=== PATIENT | female | born 1945 | race Caucasian/White ===

== ENCOUNTER → 2018-07-17 | Outpatient (CLI) | payer MEDICARE ==
[~2018-07-17] MED LIST: LORA10TA56 PO; ROSU10TA12 PO
== END | disposition home or self-care (01) ==
LOC: PREOP 06:23
PROVIDERS: ATTEND Specialist
DX: Z01.818 Encounter for other preprocedural examination (principal)

== ENCOUNTER 2018-07-24 11:30 | Outpatient (CLI) | payer MEDICARE ==
[~2018-07-24] VITALS: Ht 157.5 cm; Wt 71.7 kg
[~2018-07-24 11:30] MED LIST changes: +ATOR40TA70 PO; +FEXO-46 PO
== END 2018-07-24 12:13 ==
LOC: PREOP 11:30
PROVIDERS: ATTEND Specialist
DX: Z01.818 Encounter for other preprocedural examination (principal)

== ENCOUNTER 2018-07-26 07:31 | Day surgery (SDC) | payer MEDICARE ==
[~2018-07-26] VITALS: Ht 157.5 cm; Wt 71.7 kg
[2018-07-26 07:57] VITALS: BP 146/87
[2018-07-26] MEDS: TETRACAINE 0.5% OPHTH SOLN 4 ML BTL (SINGLE DOSE ONLY) OU PRN ×4 (08:00→08:17)
[2018-07-26] MEDS: PHENYLEPHRINE 10% OPHTH (NEO-SYN) 5 ML BTL OU PRN ×3 (08:04→08:17)
[2018-07-26] MEDS: TROPICAMIDE 1% OPH SOLN (MYDRIACYL) 15 ML BTL OU PRN ×3 (08:04→08:18)
--- NOTE | 2018-07-26 09:02 | Ophthalmology Operative Report ---
YAG Capsulotomy PREOPERATIVE DIAGNOSIS: Secondary Cataract Left Eye POSTOPERATIVE DIAGNOSIS: Secondary Cataract Left Eye PROCEDURE: YAG Capsulotomy, left eye SURGEON: Jean Paul Valente ANESTHESIA: Topical anesthesia COMPLICATIONS: None ESTIMATED BLOOD LOSS: Minimal DESCRIPTION OF PROCEDURE: After proper informed consent was obtained, the patient's, a 73 female left eye received one drop of Tropicamide and one drop of Tetracaine. The patient was then placed at the YAG laser and using a power of [ 6.0] millijoules and [ 21] bursts were used to fashion a central capsulotomy. The patient tolerated the procedure well without complications and the patient's pressure was [21 ] shortly after the laser. JEAN PAUL VALENTE MD July 26, 2018 09:02
--- NOTE | 2018-07-26 09:03 | Ophthalmologist Pre-Op Note ---
Pre-Operative Progress Note H&P Reviewed The H&P was reviewed, patient examined and no changes noted. Date H&P Reviewed: July 26, 2018 Time H&P Reviewed: 08:55 Pre-Op Dx Secondary Cataract, Left Eye VENKATESH VALENTE MD July 26, 2018 09:03
[2018-07-26 09:05] VITALS: BP 146/87
== END 2018-07-26 09:05 | disposition home or self-care (01) ==
LOC: SDC 07:31
PROVIDERS: ATTEND Specialist
DX: H26.492 Other secondary cataract, left eye (principal); I10 Essential (primary) hypertension; E78.00 Pure hypercholesterolemia, unspecified; J44.9 Chronic obstructive pulmonary disease, unspecified; G47.00 Insomnia, unspecified; F41.9 Anxiety disorder, unspecified; F32.9 Major depressive disorder, single episode, unspecified; Z72.0 Tobacco use; Z79.899 Other long term (current) drug therapy

== ENCOUNTER → 2019-01-31 | Outpatient (CLI) | payer MEDICARE ==
--- NOTE | 2019-01-31 10:46 | Diagnostic Imaging Report ---
EXAMINATION: CT low-dose lung cancer screening. INDICATION: 120-pack- year smoking history. TECHNIQUE: Routine images of the thorax were obtained using CT low-dose lung cancer screening protocol. COMPARISON: There are no prior studies available for comparison. FINDINGS: Adjacent to the left heart border, there is a 5.9 x 11.5 mm partially calcified soft tissue density. I suspect that this is a benign process as there are several other calcified granulomas in both lungs. However, given the size of the associated soft tissue density in this area, I would suggest that a short-term (three-month) follow-up CT chest exam be performed for further study. No other parenchymal abnormality is identified. There are mild emphysematous changes involving both lungs. There is no sign of failure, pneumonia, or pleural effusion. The heart size is within normal limits. There are extensive coronary artery calcifications evident. The aorta is not abnormally dilated. There is no obvious mediastinal or hilar adenopathy. The thyroid gland was not well visualized. The breast were not well imaged either. There is no obvious breast mass. The sections through the upper abdomen fail to show any sign of an acute abnormality. The bone windows do show dextroscoliosis of the mid thoracic spine. There is also fairly severe degenerative disc and bony disease in this area. There is no acute bony abnormality evident. IMPRESSION: 1. The partially calcified nodular density adjacent to the left heart border is most likely a benign process. Recommendations as above. 2. There is no other parenchymal abnormality to suggest malignancy. 3. There are emphysematous changes involving both lungs, but there is no sign of an acute abnormality. 4. There is coronary artery disease. 5. There is dextroscoliosis of the mid thoracic spine. LUNG-RADS CATEGORY: 4-A. Dictated by: Dictated on workstation # [id number]
== END ==
LOC: RAD 09:34
PROVIDERS: ATTEND Family Medicine
DX: Z12.2 Encounter for screening for malignant neoplasm of respiratory organs (principal); J43.9 Emphysema, unspecified; I25.10 Atherosclerotic heart disease of native coronary artery without angina pectoris; M41.84 Other forms of scoliosis, thoracic region; Z87.891 Personal history of nicotine dependence

== ENCOUNTER 2019-03-20 12:45 | Outpatient (CLI) | payer MEDICARE ==
[~2019-03-20] VITALS: Ht 154.9 cm; Wt 72.7 kg
== END 2019-03-20 13:21 | disposition home or self-care (01) ==
LOC: PREOP 12:45
PROVIDERS: ATTEND Surgery
DX: Z01.818 Encounter for other preprocedural examination (principal)

== ENCOUNTER → 2019-04-18 | Outpatient (CLI) | payer MEDICARE ==
--- NOTE | 2019-04-18 10:52 | Diagnostic Imaging Report ---
PROCEDURE: US Abdomen, limited. TECHNIQUE: Multiple realtime grayscale images were obtained over the abdomen in various projections. INDICATION: Abnormal CT exam. FINDINGS: There are no prior ultrasound examinations available for comparison. Reportedly, the patient had a CT examination on 01/31/2019 which indicated an abnormality involving the abdominal wall. Neither that study nor the report from that exam is available at this time. There was a CT low-dose lung cancer screening exam performed on the same date but that study made no mention of an abnormality involving the abdomen. On this study, there is a 4.2 x 1.4 x 3.5 cm hypoechoic area extending through the anterior abdominal wall into the subcutaneous fat. This area lies approximately 12-15 cm cephalad to the umbilicus. I suspect that this is related to herniation of the mesenteric fat through the anterior abdominal wall. There is no peristalsis in this area to suggest that there is a segment of bowel in this area. If the previous CT exam is available, it would be helpful for comparison. No other abnormality is identified. IMPRESSION: 1. There is a 4.2 x 1.4 x 3.5 cm hernia extending through the anterior abdominal wall into the subcutaneous fat just cephalad to the umbilicus. There is no sign of incarceration or obstruction of the bowel in this area. 2. If the previous CT exam is available for comparison, it would be helpful. Dictated by: Dictated on workstation # [id number]
== END ==
LOC: RAD 09:17
PROVIDERS: ATTEND Surgery
DX: K43.9 Ventral hernia without obstruction or gangrene (principal)
CPT/HCPCS: 76705

== ENCOUNTER → 2019-04-30 | Outpatient (CLI) | payer MEDICARE ==
[~2019-04-30] VITALS: Ht 155 cm; Wt 71.0 kg
[~2019-04-30] MED LIST changes: +CATHETER FLUSH 10 ML SYR IV PRN; +REGADENOSON 0.4 MG/5 ML SYR (LEXISCAN) IV ONE
[2019-04-30 09:16] VITALS: BP 163/91
--- NOTE | 2019-04-30 17:56 | STRESS TEST ---
DATE OF SERVICE: 04/30/2019 LEXISCAN MYOVIEW STRESS TEST REFERRING PHYSICIAN: Suni Hua MD. SUMMARY: The patient was injected with mCi of technetium-99 Myoview and the resting images were obtained. Then, the patient received 0.4 mg of Lexiscan followed by 30.7 mCi of technetium-99 Myoview and the stress images were acquired. The resting and stress images were reviewed and compared in the short axis, horizontal long axis, and vertical long axis views. Review of the images showed good radiotracer uptake with no significant ischemia or infarction. SSS is 2, SDS 1, TID value 1.08. On the gated images, the left ventricle appeared to be normal size with normal contractility. Calculated ejection fraction is 54%. CONCLUSION: 1. The patient tolerated Lexiscan well. 2. Breast attenuation with no significant ischemia or infarction on SPECT images. 3. Normal left ventricular size and contractility, calculated ejection fraction 54%. Job ID: [id number] DocumentID: [id number] Dictated Date: 04/30/2019 15:31:18 Melter Clerk Date: 04/30/2019 17:56:22 Dictated By: ARIK DELEON MD
== END ==
LOC: CARD 07:40
PROVIDERS: ATTEND Internal Medicine Cardiovascular Disease
DX: I25.10 Atherosclerotic heart disease of native coronary artery without angina pectoris (principal); E78.2 Mixed hyperlipidemia; I10 Essential (primary) hypertension; Z72.0 Tobacco use
CPT/HCPCS: 78452; 93017

== ENCOUNTER 2019-08-15 09:21 | Outpatient (RCR) | payer MEDICARE ==
[~2019-08-15] VITALS: Ht 155 cm; Wt 75.0 kg
[~2019-08-15 09:21] MED LIST changes: +ASPI-586 PO; -CATHETER FLUSH 10 ML SYR IV PRN; -REGADENOSON 0.4 MG/5 ML SYR (LEXISCAN) IV ONE
[2019-08-21] MEDS ORDERED: HYDR-4226 PO (10:41)
[2019-08-21] MEDS ORDERED: DOCU-143 PO (10:41)
== END 2019-08-15 14:51 | disposition home or self-care (01) ==
LOC: PREOP 09:21
PROVIDERS: ATTEND Surgery
DX: Z01.818 Encounter for other preprocedural examination (principal); Z01.812 Encounter for preprocedural laboratory examination; Z11.59 Encounter for screening for other viral diseases; K43.9 Ventral hernia without obstruction or gangrene
CPT/HCPCS: 87635

== ENCOUNTER 2019-08-21 08:31 | Day surgery (SDC) | payer MEDICARE ==
[~2019-08-21] VITALS: Ht 155 cm; Wt 75.0 kg
[2019-08-21] VITALS (15 sets, daily range): BP systolic 119–149; BP diastolic 65–88
--- OUTSIDE RECORDS SUMMARY | 2019-08-21 08:39 | XMS REPORT | Continuity of Care Document ---
Author Organization Unknown Address Unknown Phone Unavailable Allergies Active Description Code Type Severity Reaction Onset Reported/Identified Relationship to Patient Clinical Status Yes IVP DYES MODERATE MODERATE Yes IVP DYES MODERATE OTHER Yes PCN MODERATE DERMATOLOGICAL - HIV Yes PCN MODERATE MODERATE Yes iodine [id number] Drug Allergy Severe CODE BLUE 10/09/2009 Yes Penicillins [id number] Drug Aller gy Mild HIVES 10/09/2009 Medications There is no data. Problems Date Dx Coded Attending Type Code Diagnosis Diagnosed By 02/22/1450 JULES SOTO DO Ot K43. 9 VENTRAL HERNIA WITHOUT OBSTRUCTION OR GA 02/22/1450 JULES SOTO DO Ot Z01.812 ENCOUNTER FOR PREPROCEDURAL LABORATORY E 02/22/1450 JULES SOTO DO Ot Z01.818 ENCOUNTER FOR OTHER PREPROCEDURAL EXAMIN 02/22/1450 JULES SOTO DO Ot Z11. 59 ENCOUNTER FOR SCREENING FOR OTHER VIRAL 06/15/2017 Suni Alves W 787.91 DIARRHEA 06/15/2017 Suni Alves W 789.00 ABDOMINAL PAIN, UNSPECIFIED SITE 06/15/2017 Suni Alves W R10.9 UNSPECIFIED ABDOMINAL PAIN 06/15/2017 Suni Alves W R19.7 DIARRHEA, UNSPECIFIED 06/15/2017 W 787.91 RONDA RRHEA 06/15/2017 W 789.00 ABD OMINAL PAIN, UNSPECIFIED SITE 06/15/2017 W R10.9 UNSP ECIFIED ABDOMINAL PAIN 06/15/2017 W R19.7 DIAR DOMI, UNSPECIFIED 06/15/2017 Suni Alves W 787.91 DIARRHEA 06/15/2017 Suni Alves W 789.00 ABDOMINAL PAIN, UNSPECIFIED SITE 06/15/2017 Suni Alves W R10.9 UNSPECIFIED ABDOMINAL PAIN 06/15/2017 Long, Suni W R19.7 DIARRHEA, UNSPECIFIED 07/18/2018 AMBROSIO GONZALEZ, VENKATESH L Ot Z01.818 ENCOUNTER FOR OTHER PREPROCEDURAL EXAMIN 07/24/2018 AMBROSIO GONZALEZ, VENKATESH L Ot Z01.818 ENCOUNTER FOR OTHER PREPROCEDURAL EXAMIN 07/24/2018 AMBROSIO GONZALEZ, VENKATESH Hunter Ot Z01.818 ENCOUNTER FOR OTHER PREPROCEDURAL EXAMIN 07/24/2018 AMBROSIO GONZALEZ, VENKATESH Hunter Ot Z01.818 ENCOUNTER FOR OTHER PREPROCEDURAL EXAMIN 07/26/2018 AMBROSIO GONZALEZ, VENKATESH L Ot Z01.818 ENCOUNTER FOR OTHER PREPROCEDURAL EXAMIN 07/26/2018 VENKATESH VALENTE MD Ot E78.00 PURE HYPERCHOLESTEROLEMIA, UNSPECIFIED 07/26/2018 VENKATESH VALENTE MD Ot F32 .9 MAJOR DEPRESSIVE DISORDER, SINGLE EPISOD 07/26/2018 VENKATESH VALENTE MD Ot F41 .9 ANXIETY DISORDER, UNSPECIFIED 07/26/2018 VENKATESH VALENTE MD Ot G47.00 INSOMNIA, UNSPECIFIED 07/26/2018 VENKATESH VALENTE MD Ot H26.492 OTHER SECONDARY CATARACT, LEFT EYE 07/26/2018 VENKATESH VALENTE MD Ot I10 ESSENTIAL (PRIMARY) HYPERTENSION 07/26/2018 VENKATESH VALENTE MD Ot J44 .9 CHRONIC OBSTRUCTIVE PULMONARY DISEASE, U 07/26/2018 VENKATESH VALENTE MD Ot Z72 .0 TOBACCO USE 07/26/2018 VENKATESH VALENTE MD Ot Z79.899 OTHER FPC (CURRENT) DRUG THERAPY 07/30/2018 VENKATESH VALENTE MD Ot E78.00 PURE HYPERCHOLESTEROLEMIA, UNSPECIFIED 07/30/2018 VENKATESH VALENTE MD Ot F32 .9 MAJOR DEPRESSIVE DISORDER, SINGLE EPISOD 07/30/2018 VENKATESH VALENTE MD Ot F41 .9 ANXIETY DISORDER, UNSPECIFIED 07/30/2018 VENKATESH VALENTE MD Ot G47.00 INSOMNIA, UNSPECIFIED 07/30/2018 VENKATESH VALENTE MD Ot H26.492 OTHER SECONDARY CATARACT, LEFT EYE 07/30/2018 VENKATESH VALENTE MD Ot I10 ESSENTIAL (PRIMARY) HYPERTENSION 07/30/2018 VENKATESH VALENTE MD Ot J44 .9 CHRONIC OBSTRUCTIVE PULMONARY DISEASE, U 07/30/2018 VENKATESH VALENTE MD Ot Z72 .0 TOBACCO USE 07/30/2018 VENKATESH VALENTE MD Ot Z79.899 OTHER BEEF RIBBER (CURRENT) DRUG THERAPY 07/31/2018 VENKATESH VALENTE MD Ot E78.00 PURE HYPERCHOLESTEROLEMIA, UNSPECIFIED 07/31/2018 VENKATESH VALENTE MD Ot F32 .9 MAJOR DEPRESSIVE DISORDER, SINGLE EPISOD 07/31/2018 VENKATESH VALENTE MD Ot F41 .9 ANXIETY DISORDER, UNSPECIFIED 07/31/2018 VENKATESH VALENTE MD Ot G47.00 INSOMNIA, UNSPECIFIED 07/31/2018 VENKATESH VALENTE MD Ot H26.492 OTHER SECONDARY CATARACT, LEFT EYE 07/31/2018 VENKATESH VALENTE MD Ot I10 ESSENTIAL (PRIMARY) HYPERTENSION 07/31/2018 VENKATESH VALENTE MD Ot J44 .9 CHRONIC OBSTRUCTIVE PULMONARY DISEASE, U 07/31/2018 VENKATESH VALENTE MD Ot Z72 .0 TOBACCO USE 07/31/2018 VENKATESH VALENTE MD Ot Z79.899 OTHER BEEF RIBBER (CURRENT) DRUG THERAPY 01/30/2019 SUNI ALVES MD Ot Z87.891 PERSONAL HISTORY OF NICOTINE DEPENDENCE 02/04/2019 SUNI ALVES MD Ot I25.10 ATHSCL HEART DISEASE OF [place] CORONARY 02/04/2019 SUNI ALVES MD Ot J43 .9 EMPHYSEMA, UNSPECIFIED 02/04/2019 SUNI ALVES MD Ot M41.84 OTHER FORMS OF SCOLIOSIS, THORACIC REGIO 02/04/2019 SUNI ALVES MD Ot Z12 .2 ENCNTR SCREEN FOR MALIGNANT NEOPLASM OF 02/04/2019 SUNI ALVES MD Ot Z87.891 PERSONAL HISTORY OF NICOTINE DEPENDENCE 02/25/2019 SUNI ALVES MD Ot I25.10 ATHSCL HEART DISEASE OF [place] CORONARY 02/25/2019 SUNI ALVES MD Ot J43 .9 EMPHYSEMA, UNSPECIFIED 02/25/2019 SUNI ALVES MD Ot M41.84 OTHER FORMS OF SCOLIOSIS, THORACIC REGIO 02/25/2019 SUNI ALVES MD Ot Z12 .2 ENCNTR SCREEN FOR MALIGNANT NEOPLASM OF 02/25/2019 LONG GONZALEZ, SUNI Rosa Ot Z87.891 PERSONAL HISTORY OF NICOTINE DEPENDENCE 03/20/2019 JULES SOTO DO Ot Z01.818 ENCOUNTER FOR OTHER PREPROCEDURAL EXAMIN 03/20/2019 JULES SOTO DO Ot Z01.818 ENCOUNTER FOR OTHER PREPROCEDURAL EXAMIN 03/20/2019 JULES SOTO DO Ot Z01.818 ENCOUNTER FOR OTHER PREPROCEDURAL EXAMIN 03/25/2019 JULES SOTO DO Ot F17.210 NICOTINE DEPENDENCE, CIGARETTES, UNCOMPL 03/25/2019 JULES SOTO DO Ot J43. 9 EMPHYSEMA, UNSPECIFIED 03/25/2019 JULES SOTO DO Ot K21. 0 GASTRO-ESOPHAGEAL REFLUX DISEASE WITH ES 03/25/2019 JULES SOTO DO Ot K43. 9 VENTRAL HERNIA WITHOUT OBSTRUCTION OR GA 03/25/2019 JULES SOTO DO Ot K44. 9 DIAPHRAGMATIC HERNIA WITHOUT OBSTRUCTION 03/25/2019 JULES SOTO DO Ot K62. 6 ULCER OF ANUS AND RECTUM 03/25/2019 JULES SOTO DO Ot K63. 5 POLYP OF COLON 03/25/2019 JULES SOTO DO Ot Z80. 9 FAMILY HISTORY OF MALIGNANT NEOPLASM, UN 03/25/2019 JULES SOTO DO Ot Z82. 49 FAMILY HX OF ISCHEM HEART DIS AND OTH DI 03/25/2019 JULES SOTO DO Ot Z88. 0 ALLERGY STATUS TO PENICILLIN 03/25/2019 JULES SOTO DO Ot Z88. 8 ALLERGY STATUS TO OTH DRUG/MEDS/BIOL SUB 03/25/2019 JULES SOTO DO Ot Z90.710 ACQUIRED ABSENCE OF BOTH CERVIX AND UTER 03/31/2019 JULES SOTO DO Ot F17.210 NICOTINE DEPENDENCE, CIGARETTES, UNCOMPL 03/31/2019 JULES SOTO DO Ot J43. 9 EMPHYSEMA, UNSPECIFIED 03/31/2019 JULES SOTO DO Ot K21. 0 GASTRO-ESOPHAGEAL REFLUX DISEASE WITH ES 03/31/2019 JULES SOTO DO Ot K43. 9 VENTRAL HERNIA WITHOUT OBSTRUCTION OR GA 03/31/2019 JULES SOTO DO Ot K44. 9 DIAPHRAGMATIC [facility]ERNIA [facility] OBSTRUCTION [facility] OF ANUS AND RECTUM 03/31/2019 [facility]. 5 POLYP OF COLON 03/31/2019 [facility], JULES Petty Ot Z80. 9 FAMILY HISTORY OF MALIGNANT NEOPLASM, UN 03/31/2019 [facility], JULES Petty Ot Z82. 49 FAMILY HX OF ISCHEM HEART DIS AND OTH DI 03/31/2019 [facility]. 0 ALLERGY STATUS TO PENICILLIN 03/31/2019 [facility] 8 ALLERGY STATUS TO OTH DRUG/MEDS/BIOL SUB 03/31/2019 [facility] Z90.710 ACQUIRED ABSENCE OF BOTH CERVIX AND UTER 04/02/2019 [facility] F17.210 NICOTINE DEPENDENCE, CIGARETTES, UNCOMPL 04/02/2019 [facility] J43. 9 EMPHYSEMA, UNSPECIFIED 04/02/2019 [facility] K21. 0 GASTRO-ESOPHAGEAL REFLUX DISEASE WITH ES 04/02/2019 [facility] K43. 9 VENTRAL HERNIA WITHOUT OBSTRUCTION OR GA 04/02/2019 [facility] K44. 9 DIAPHRAGMATIC HERNIA WITHOUT OBSTRUCTION 04/02/2019 [facility] K62. 6 ULCER OF ANUS AND RECTUM 04/02/2019 [facility] K63. 5 POLYP OF COLON 04/02/2019 [facility] Z80. 9 FAMILY HISTORY OF MALIGNANT NEOPLASM, UN 04/02/2019 [facility], JULES Petty Ot Z82. 49 FAMILY HX OF ISCHEM HEART DIS AND OTH DI 04/02/2019 [facility]ULES Ot Z88. 0 ALLERGY STATUS TO PENICILLIN 04/02/2019 [facility]88. 8 ALLERGY STATUS TO OTH DRUG/MEDS/BIOL SUB 04/02/2019 [facility], JULES Petty Ot Z90.710 ACQUIRED ABSENCE OF BOTH CERVIX AND UTER 04/21/2019 [facility] K43. 9 VENTRAL HERNIA WITHOUT OBSTRUCTION OR GA 05/01/2019 PANCHO GONZALEZ, ARIK Goins Ot E78. 2 MIXED HYPERLIPIDEMIA 05/01/2019 ARIK DELEON MD Ot I10 ESSENTIAL (PRIMARY) HYPERTENSION 05/01/2019 ARIK DELEON MD, Ot I25. 10 ATHSCL HEART DISEASE OF [place] CORONARY 05/01/2019 ARIK DELEON MD Ot Z72. 0 TOBACCO USE 05/19/2019 JULES SOTO DO Jovanny Ot K43. 9 VENTRAL HERNIA WITHOUT OBSTRUCTION OR GA 05/20/2019 ARIK DELEON MD Ot E78. 2 MIXED HYPERLIPIDEMIA 05/20/2019 ARIK DELEON MD Ot I10 ESSENTIAL (PRIMARY) HYPERTENSION 05/20/2019 ARIK DELEON MD Ot I25. 10 ATHSCL HEART DISEASE OF [place] CORONARY 05/20/2019 ARIK DELEON MD Ot Z72. 0 TOBACCO USE 06/05/2019 ARIK DELEON MD Ot E78. 2 MIXED HYPERLIPIDEMIA 06/05/2019 ARIK DELEON MD Ot I10 ESSENTIAL (PRIMARY) HYPERTENSION 06/05/2019 ARIK DELEON MD, Ot I25. 10 ATHSCL HEART DISEASE OF [place] CORONARY 06/05/2019 ARIK DELEON MD, Ot Z72. 0 TOBACCO USE Procedures There is no data. Results Test Result Range Comprehensive Metabolic Panel - 06/15/17 14:39 Albumin 3.8 g/dL 3.6-5.1 ALP 80 U/L 35-130 ALT 12 U/L 6-45 Anion Gap 17 6-14 AST 20 U/L 2-40 BUN 14 mg/dL 5-25 Calcium 9.4 mg/dL 8.3-10.4 Chloride 105 mmol/L 95-114 CO2 23 mEq/L 22-33 Creat 0.91 mg/dL 0.50-1.50 eGFR 61 mL/min/1.73m2 >59 Globulin 3.3 g/dL 2.3-3.5 Glucose 82 mg/dL 70-110 Osmo 291 280-295 Potassium 4.4 mmol/L 3.5-5.3 Sodium 141 mmol/L 134-148 TBil 0.4 mg/dL 0.2-1.2 TP 7.1 g/dL 6.0-8.3 Amylase - 06/15/17 14:39 Amylase 73 U/L 20-100 Lipase - 06/15/17 14:39 Lipase 14 U/L 7-59 Sed Rate - 06/18/18 08:26 Sed Rate 16 mm/hr 9-15 Thyroid Stimulating Hormone - 01/10/19 1 2:10 TSH 1.67 mIU/mL 0.32-5.00 Uric Acid - 02/28/19 12:29 Uric Acid 4.8 mg/dL 2.6-7.2 Coronavirus SARS-CoV-2 SO 2019 - 0 13:05 Coronavirus Ab [Units/volume] in Serum Negative Negative Encounters ACCT No. Visit Date/Time Discharge Status Pt. Type Provider Facility Loc./Unit Complaint [id number] 02/28/2019 12:23:00 02/28/2019 23:59 :00 DIS Outpatient Suni Alves [id number] 02/24/2019 08:36:00 02/24/2019 23:59: 00 DIS Outpatient Suni Alves [id number] 01/30/2019 09:40:00 01/30/2019 23:59: 00 DIS Outpatient Suni Alves [id number] 01/10/2019 14:10:00 01/10/2019 23:59: 00 DIS Outpatient Suni Alves [id number] 01/10/2019 11:35:00 01/10/2019 23:59: 00 DIS Outpatient LongSuni [id number] 06/19/2018 00:00:00 06/19/2018 23:59: 00 DIS Outpatient Suni Alves [id number] 06/18/2018 08:23:00 06/18/2018 23:59: 00 DIS Outpatient Suni Alves [id number] 06/14/2018 16:45:00 06/14/2018 23:59: 00 DIS Outpatient Suni Alves [id number] 06/15/2017 14:10:00 06/15/2017 23:59: 00 DIS Outpatient Suni Alves [id number] 06/15/2017 13:19:00 Document Registration [id number] 08/15/2019 09:21:00 14:51:00 DIS Outpatient JULES SOTO DO [facility] PREOP VENTRAL EPIGASTRIC OCTAVIA [place] [id number] 04/30/2019 08:00:00 23:59:59 CLS Outpatient PANCHO GONZALEZ, ARIK Goins [facility] CARD HTN,HYPERLIPIDEMIA [id number] 04/18/2019 09:17:00 23:59:59 CLS Outpatient JULES SOTO DO [facility] RAD EPIGASTRIC MASS [id number] 03/25/2019 07:22:00 10:20:00 DIS Outpatient OSTO JULES POWERS [facility] ENDO +COLOGUARD [id number] 03/20/2019 12:45:00 13:21:00 DIS Outpatient SOTO JULES POWERS [facility] PREOP COLONOSCOPY [id number] 01/31/2019 09:34:00 23:59:59 CLS Outpatient SUNI ALVES MD [facility] RAD SCREENING [id number] 07/26/2018 07:31:00 09:05:00 DIS Outpatient VENKATESH VALENTE MD [facility] SDC LEFT YAG CAPSULOTOMY [id number] 07/24/2018 11:30:00 12:13:00 DIS Outpatient VENKATESH VALENTE MD [facility] PREOP YAG [id number] 07/17/2018 06:23:00 23:59:59 CLS Outpatient VENKATESH VALENTE MD [facility] PREOP LET YAG CAPSULOTOMY [id number] 08/21/2019 09:55:00 P EN Preadmit JULES SOTO DO [facility] SDC VENTRAL EPIGASTRIC HERNIA
[2019-08-21] MEDS ORDERED: CLINDAMYCIN 600 MG/50 ML IVPB 50 ML IV ONE (08:45)
[2019-08-21] MEDS ORDERED: SEVOFLURANE (ULTANE) 15 ML INHAL SOLN ONE (08:59)
[2019-08-21] MEDS ORDERED: ONDANSETRON 4 MG/2 ML (SDV) Z0FRAN ONE ×2 (08:59→09:33)
[2019-08-21] MEDS ORDERED: ROCURONIUM 10 MG/ML 5 ML SYRINGE IV ONE (08:59)
[2019-08-21] MEDS ORDERED: proPOfol 200 MG/20 ML (DIPRIVAN) VIAL IV ONE (08:59)
[2019-08-21] MEDS ORDERED: LIDOCAINE PF 2% 5 ML (XYLOCAINE) VIAL ONE (08:59)
[2019-08-21] MEDS ORDERED: DEXAMETHASONE 10 MG/ML (DECADRON) 1 ML VIAL ONE (08:59)
[2019-08-21] MEDS ORDERED: fentaNYL INJECTION 100 MCG/2 ML AMP ONE (09:00)
[2019-08-21] MEDS ORDERED: BUP/EPI 0.5% 1:200,000 (SENSORCAINE) 30 ML VIAL ONE (09:06)
[2019-08-21] MEDS: LACTATED RINGERS 1,000 ML IV PRN ×2 (09:10→10:39)
--- NOTE | 2019-08-21 09:12 | Progress Note-Pre Operative ---
Pre-Operative Progress Note H&P Reviewed The H&P was reviewed, patient examined and no changes noted. Date Seen by Provider: August 21, 2019 Time Seen by Provider: 09:12 Date H&P Reviewed: August 21, 2019 Time H&P Reviewed: 09:12 Pre-Operative Diagnosis: epigastric hernia JULES SOTO DO August 21, 2019 09:12
[2019-08-21 09:25] LABS: BASOPHILS # (AUTO) 0.1 10^3/uL (0.0-0.1); BASOPHILS % (AUTO) 1 % (0-10); EOSINOPHILS # (AUTO) 0.1 10^3/uL (0.0-0.3); EOSINOPHILS % (AUTO) 2 % (0-10); HEMATOCRIT 45 % (35-52); HEMOGLOBIN 15.3 G/DL (11.5-16.0); LYMPHOCYTES # (AUTO) 1.8 X 10^3 (1.0-4.0); LYMPHOCYTES % (AUTO) 31 % (12-44); MEAN CORPUSCULAR HEMOGLOBIN 30 PG (25-34); MEAN CORPUSCULAR HGB CONC 34 G/DL (32-36); MEAN CORPUSCULAR VOLUME 87 FL (80-99); MEAN PLATELET VOLUME 9.7 FL (7.4-10.4); MONOCYTES # (AUTO) 0.6 X 10^3 (0.0-1.0); MONOCYTES % (AUTO) 10 % (0-12); NEUTROPHILS # (AUTO) 3.3 X 10^3 (1.8-7.8); NEUTROPHILS % (AUTO) 56 % (42-75); PLATELET COUNT 330 10^3/uL (130-400); RED CELL DISTRIBUTION WIDTH 14.8 % (10.0-14.5); WHITE BLOOD COUNT 5.8 10^3/uL (4.3-11.0)
[2019-08-21] MEDS ORDERED: OMEP10CA5 PO (09:33)
[2019-08-21] MEDS ORDERED: FAMOTIDINE 20MG/2ML IV (PEPCID) ONE (09:34)
[2019-08-21] MEDS ORDERED: ONDANSETRON 4 MG/2 ML (SDV) Z0FRAN IV ONE (09:45)
[2019-08-21] MEDS ORDERED: FAMOTIDINE 20MG/2ML IV (PEPCID) IV ONE (09:45)
[2019-08-21] MEDS ORDERED: PHENYLEPHRINE 100 MCG/ML 10 ML (ANESTHESIA) SYR ONE (09:57)
[2019-08-21] MEDS ORDERED: GLYCOPYRROLATE 0.2 MG/ML (ROBINUL) 2 ML VIAL ONE ×2 (10:01→10:25)
[2019-08-21] MEDS ORDERED: NEOSTIGMINE 3 MG/3 ML VIAL ONE (10:25)
[2019-08-21] MEDS ORDERED: KETOROLAC 30 MG/ML VIAL ONE (10:32)
[2019-08-21] MEDS ORDERED: DOCU-143 PO (10:41)
[2019-08-21] MEDS ORDERED: HYDR-4226 PO (10:41)
--- NOTE | 2019-08-21 10:42 | Discharge Inst-Simple/Standard ---
Discharge Inst-Standard Discharge Medications New, Converted or Re-Newed RX: RX on Chart Patient Instructions/Follow Up Plan of Care/Instructions/FU: 2 weeks Calvin Activity as Tolerated: No Discharge Diet: Regular Diet Other Inst to Patient Follow up Appt: Make appointment for 2 week. Instructions: No lifting greater than 10 pounds. No strenuous activity. May shower in 24 hours, no tub bath or soaking. Use incentive spirometer at home as directed. No Smoking Skin/Wound Care: You have special glue over your incision that will fall off on it's own. Symptoms to Report: Appetite Changes, Extremity Discoloration, Numbness/Tingling, Swelling Increased, Bleeding Excessive, Eyesight Changes, Pain Increased, Urine Color Change, Constipation(Persistent), Fever over 101 degree F, Pain/Pressure in chest, Urinating Difficulty, Cough Up/Vomit Blood, Heart Beat Irreg/Pounding, Pain/Pressure in jaw, Vaginal Bleeding Increase, Cramps in feet or legs, Lightheadedness, Pain/Pressure in shoulder, Diarrhea(Persistent), Memory Changes Suddenly, Questions/Concerns, Weight gain consecutive days, Dizziness/Fainting, Nausea/Vomiting, Shortness of Breath, Weight gain over 2 pounds If questions or concerns contact your physician Or seek help at emergency department. JULES SOTO DO August 21, 2019 10:42
--- NOTE | 2019-08-21 10:49 | Progress Note-Post Operative ---
Post-Operative Progess Note Surgeon (s)/Assistant Merchandiser (s) Surgeon JULES SOTO DO Assistant Merchandiser: Dr. Brownlee to assist in retraction dissection and closure. Pre-Operative Diagnosis epigastric hernia Post-Operative Diagnosis incarcerated epigastric hernia Procedure & Operative Findings Date of Procedure 08/21/19 Procedure Performed/Findings PROCEDURE: Laparoscopic incarcerate epigastric hernia repair with mesh. COMPLICATIONS: None. INDICATIONS: The patient is a 74, female with an epigastric incarcerated hernia, which has continued to increase in size and cause discomfort. The patient was explained the risk and benefits of the procedure and wished to proceed with the procedure. Consent was signed on the chart. DESCRIPTION OF PROCEDURE: The patient was taken into the operating suite, prepped and draped in sterile fashion. Surgical pause was performed. Local anesthetic was infiltrated in left upper quadrant. A 15 blade scalpel was used to make a small skin incision. Cautery was used to dissect down to the fascia, which was then scored and divided the muscle, went through the posterior sheath and a balloon trocar was inserted into the abdomen. The abdomen was then insufflated. A 5 mm trocar was placed in the right lower quadrant and a 5 mm trocar was placed in left lower quadrant. Ligasure was used to take down falciform ligament and hernia defect visualized and large amount of fat was incarcerated through the defect which was then reduced and placed in endobag and removed. Echo Ventralight mesh was then inserted in the abdomen grabbed through the stab incision. The balloon was inflated on the mesh. Circumferential tacks were placed with a SecureStrap Tacker. The balloon was then removed and inner crown was created as well. The mesh was tacked with pressure being decreased. The 12 mm fascial defect was then closed using 3-0 and 0 Vicryl. The abdomen was then desufflated,the trocars were removed. The skin was then closed using 4-0 Monocryl in a running subcuticular fashion. The abdomen was washed and dried and Skin Affix was placed over the incisions. The patient tolerated procedure well without any complications. She was taken to recovery room in stable condition. Anesthesia Type general Estimated Blood Loss Estimated blood loss (mL): minimal Specimens/Packing Specimens Removed hernia contents JULES SOTO DO August 21, 2019 10:49
[2019-08-21] MEDS ORDERED: HYDROmorphone 2 MG/ML VIAL (DILAUDID) ONE (10:50)
[2019-08-21] MEDS ORDERED: HYDROmorphone 2 MG/ML VIAL (DILAUDID) IV ONE (11:00)
[2019-08-21] MEDS ORDERED: ONDANSETRON 4 MG/2 ML (SDV) Z0FRAN IVP PRN (11:00)
[2019-08-21] MEDS ORDERED: HYDROcodone/APAP 5 MG/325 MG (LORTAB) TAB ONE (12:11)
[2019-08-21] MEDS ORDERED: HYDROcodone/APAP 5 MG/325 MG (LORTAB) TAB PO ONE ×2 (12:15→13:45)
--- NOTE | 2019-08-21 14:50 | Anesthesia-General Post-Op ---
General Patient Condition Mental Status/LOC: Same as Preop Cardiovascular: Satisfactory Nausea/Vomiting: Absent Respiratory: Satisfactory Pain: Controlled Complications: Absent Post Op Complications Complications None Follow Up Care/Instructions Patient Instructions None needed. Anesthesia/Patient Condition Patient Condition Patient is doing well, no complaints, stable vital signs, no apparent adverse anesthesia problems. No complications reported per nursing. D/C home per [facility] Criteria: Yes AMINTA ALMARAZ CRNA August 21, 2019 14:50
== END 2019-08-21 15:55 | disposition home or self-care (01) ==
LOC: SDC 08:31
PROVIDERS: ATTEND Surgery
DX: K43.6 Other and unspecified ventral hernia with obstruction, without gangrene (principal); E66.9 Obesity, unspecified; J43.9 Emphysema, unspecified; I10 Essential (primary) hypertension; E78.2 Mixed hyperlipidemia; F17.210 Nicotine dependence, cigarettes, uncomplicated; Z88.0 Allergy status to penicillin; Z88.8 Allergy status to other drugs, medicaments and biological substances; Z79.82 Long term (current) use of aspirin; Z79.899 Other long term (current) drug therapy; Z90.710 Acquired absence of both cervix and uterus; Z79.02 Long term (current) use of antithrombotics/antiplatelets; Z68.31 Body mass index [BMI] 31.0-31.9, adult; Z85.42 Personal history of malignant neoplasm of other parts of uterus; Z80.9 Family history of malignant neoplasm, unspecified
CPT/HCPCS: 36415; 85025; 87081; 94664

== ENCOUNTER → 2019-10-28 | Outpatient (CLI) | payer MEDICARE ==
[~2019-10-28] MED LIST changes: +DOCU-143 PO; +HYDR-4226 PO; +OMEP10CA5 PO
--- NOTE | 2019-10-28 08:56 | Diagnostic Imaging Report ---
INDICATION: Abdominal pain TECHNIQUE: Grayscale sonographic images of the abdominal aorta. CORRELATION STUDY: None FINDINGS: There is noted scattered plaque through the abdominal aorta. Abdominal Aorta Proximal: 2.0 x 1.9 cm Mid: 1.6 x 1.9 cm Distal: 1.1 x 1.3 cm Common Iliac Arteries Right DEYSI: 0.5 x 0.7 cm Left DEYSI: 0.5 x 0.9 cm IMPRESSION: 1. Negative for abdominal aortic aneurysm. Dictated by: Dictated on workstation # [id number]
== END ==
LOC: RAD 08:08
PROVIDERS: ATTEND Family Medicine
DX: R10.9 Unspecified abdominal pain (principal)
CPT/HCPCS: 76775

== ENCOUNTER → 2020-06-02 | Outpatient (CLI) | payer MEDICARE ==
--- NOTE | 2020-06-02 15:25 | Diagnostic Imaging Report ---
EXAMINATION: CT Chest without contrast (lung screening). TECHNIQUE: Multiple contiguous axial images were obtained through the chest without the use of intravenous contrast according to lung cancer screening protocol. All CT scans use one or more of the following dose optimizing techniques: automated exposure control, MA and/or KvP adjustment based on a patient size and exam type, or iterative reconstruction. HISTORY: 40 pack year history of smoking. COMPARISON: 01/31/2019 FINDINGS: There is no edema or pneumonia. No pleural effusion. No pneumothorax. No suspicious nodules. There is no axillary or supraclavicular lymphadenopathy. There is no mediastinal lymphadenopathy. Heart size is normal. There are mild coronary artery calcifications. No pericardial effusion. Aorta is normal in caliber. Limited views of the upper abdomen are unremarkable. There are no suspicious osseus lesions. IMPRESSION: 1. No suspicious pulmonary nodules. LUNG-RADS CATEGORY: 1 MODIFIER: None. Dictated by: Dictated on workstation # [id number]
--- NOTE | 2020-06-03 10:29 | Diagnostic Imaging Report ---
Indication: Routine screening. Comparison is made with prior mammogram from 01/30/2019 and 11/12/2015. 2-D and 3-D bilateral screening mammography was performed with CAD. Scattered fibroglandular densities are identified bilaterally. Calcified nodule in the retroareolar left breast is again noted. No spiculated mass or malignant appearing microcalcifications are seen. Axillae are unremarkable. IMPRESSION: BI-RADS Category 2 No mammographic features suspicious for malignancy are identified. ACR BI-RADS Category 2: Benign findings. Result letter will be mailed to the patient. Note: At least 10% of breast cancer is not imaged by mammography. Dictated by: Dictated on workstation # [id number]
== END ==
LOC: RAD 14:24
PROVIDERS: ATTEND Family Medicine
DX: Z12.31 Encounter for screening mammogram for malignant neoplasm of breast (principal); Z12.2 Encounter for screening for malignant neoplasm of respiratory organs; F17.210 Nicotine dependence, cigarettes, uncomplicated
CPT/HCPCS: 71271; 77063; 77067

== ENCOUNTER 2021-03-24 10:59 | Outpatient (RCR) | payer MEDICARE | END 2021-03-25 | disposition home or self-care (01) | PROVIDERS: ATTEND Nurse Practitioner Family | DX: M54.9 Dorsalgia, unspecified (principal); R53.1 Weakness ==

== ENCOUNTER 2021-04-20 12:52 | Outpatient (RCR) | payer MEDICARE | END 2021-04-20 13:35 | disposition home or self-care (01) | PROVIDERS: ATTEND Nurse Practitioner Family | DX: M54.50 Low back pain, unspecified (principal); I10 Essential (primary) hypertension; J43.9 Emphysema, unspecified; R53.1 Weakness ==

== ENCOUNTER 2022-07-09 14:31 | Emergency (ER) | payer MEDICARE ==
[~2022-07-09] VITALS: Ht 152 cm; Wt 68.0 kg
[~2022-07-09 14:31] MED LIST changes: -FEXO-46 PO; +NF-ALLE180 PO
--- NOTE | 2022-07-09 15:06 | ED Upper Extremity ---
General Chief Complaint: Upper Extremity Stated Complaint: INJ RIGHT SHOULDER Nursing Triage Note: PT REPORTS TO ED POST FALL AT HOME AROUND NOON. PT WAS PULLING WEEDS OUT OF HER FLOWER BED WHEN SHE TRIPPED OVER A BRICK. PT STATES SHE PUT HER RIGHT HAND OUT TO CATCH HERSELF. PT STATES SHE FELL LIGHTLY BUT HER RIGHT SHOULDER HURTS. DENIES HEAD INJURY. PT AMB. TO FT1 WITHOUT DIFFICULTY. Source: patient Exam Limitations: no limitations History of Present Illness Date Seen by Provider: Jul 09, 2022 Time Seen by Provider: 14:45 Initial Comments 77-year-old female presents to the ED after she tripped and fell around noon. She is uncertain how she landed, but thinks she tried to catch herself with her right hand. She is complaining of right shoulder pain with movement, she also has right shoulder pain with movement of her hand. Denies any hand, wrist, elbow pain. Denies any numbness or tingling in her hand or arm. Past medical history includes hyperlipidemia and hypertension. Allergies and Home Medications Allergies Coded Allergies: iodine (Unverified Adverse Reaction, Severe, CODE BLUE, 10/09/09) Penicillins (Unverified Adverse Reaction, Mild, HIVES, 10/09/09) Patient Home Medication List Home Medication List Reviewed: Yes Aspirin (Aspir 81) 81 Mg Tablet., 81 MG PO DAILY, (Reported) Entered as Reported by: MARCI BARBER on 08/14/19 0936 Atorvastatin Calcium (Atorvastatin Calcium) 40 Mg Tablet, 40 MG PO HS, (Reported) Entered as Reported by: MARCI BARBER on 07/24/18 1117 Docusate Sodium (Colace) 100 Mg Capsule, 100 MG PO BID Prescribed by: JULES SOTO on 08/21/19 1041 Fexofenadine HCl (Fexofenadine HCl) 180 Mg Tablet, 180 MG PO DAILY, (Reported) Entered as Reported by: MARCI BARBER on 07/24/18 1117 Hydrocodone/Acetaminophen (Hydrocodone/Acetaminophen 5 MG/325 MG TAB) 1 Each Tablet, 1 TAB PO Q4-6HR Prescribed by: JULES SOTO on 08/21/19 1041 Omeprazole (Omeprazole) Unknown Strength Capsule., Unknown Dose PO, (Reported) Entered as Reported by: PREMA HOOD on 08/21/19 0933 Review of Systems Constitutional: see HPI Past Rgowvec-Nfhpmp-Hupgqx Hx Patient Social History Tobacco Use?: Yes Tobacco type used: Cigarettes Smoking Status: Current Everyday Smoker Use of E-Cig and/or Vaping dev: No Substance use?: No Alcohol Use?: No Pt feels they are or have been: No Immunizations Up To Date Influenza Vaccine Up-to-Date: Yes; Up-to-Date First/Initial COVID19 Vaccinat: 2021 Second COVID19 Vaccination [place]: 2021 Third COVID19 Vaccination Date: 2021 COVID19 Vaccine Senior [employer]: [employer] Seasonal Allergies Seasonal Allergies: Yes Past Medical History Surgery/Hospitalization HX: DENIES PMH. HERNIA SURGERY AND PARTIAL HYST. Surgeries: Yes (RIGHT INDEX FINGER SURGICAL REPAIR) Hysterectomy Respiratory: Yes (gets SOB with exertion) Asthma, COPD, Emphysema Cardiac: No Neurological: No Genitourinary: No Gastrointestinal: Yes Abdominal Hernia, Gastroesophageal Reflux, Chronic Constipation, Chronic Diarrhea, Irritable Bowel Musculoskeletal: Yes Arthritis, Chronic Back Pain Endocrine: No HEENT: No Cancer: Yes Uterine What Type of Treatment Did You: Surgical Intervention Psychosocial: No Integumentary: No Blood Disorders: No Physical Exam Vital Signs Vital Signs - First Documented 07/09/22 14:46 Temp 35.5 Pulse 64 Resp 18 B/P (MAP) 155/85 (108) Pulse Ox 95 O2 Delivery Room Air Capillary Refill : Less Than 3 Seconds Height, Weight, BMI Height: 5'2.00" Weight: 158lbs. 0.0oz. [id number]; 29.00 BMI Method: General Appearance: WD/WN, no apparent distress Neck: supple, normal inspection Cardiovascular: regular rate, rhythm, no edema, no gallop, no JVD, no murmur Respiratory: lungs clear, normal breath sounds, no respiratory distress, no accessory muscle use Shoulder: limited ROM, pain, soft tissue tenderness Elbow/Forearm: normal inspection, non-tender, no evidence of injury, normal ROM, Right Wrist: Yes normal inspection, Yes non-tender, Yes no evidence of injury, Yes normal ROM Hand: normal inspection, non-tender, no evidence of injury, normal ROM, Right Progress/Results/Core Measures Results/Orders My Orders Orders - YAW MIRZA APRN Shoulder, Right, 3 Views (07/09/22 15:02) Vital Signs/I&O 07/09/22 07/09/22 14:46 16:47 Temp 35.5 35.5 Pulse 64 75 Resp 18 18 B/P (MAP) 155/85 (108) 139/80 Pulse Ox 95 97 O2 Delivery Room Air Room Air Blood Pressure Mean: 108 Progress Progress Note : Time: 15:05 Progress Note Patient seen and evaluated, resting comfortably in recliner, no acute distress. Based on exam and symptoms, concerned for fracture, dislocation, or tendon/muscular injury. X-ray of right shoulder ordered. 1605 x-ray reviewed. Negative for acute osseous abnormality. I am concerned that patient injured the tendon/muscles due to limited range of motion and inability to raise arm above head, will place patient in sling, and have her follow-up with orthopedics. Discharge instructions and return precautions provided. Diagnostic Imaging Diagonstic Imaging: Xray Plain Films/CT/US/NM/MRI: other (Shoulder) Comments [facility] [place], [place] NAME: JOSHUA DOYLE [facility] REC#: [id number] PT STATUS: REG ER : 1945 PHYSICIAN: YAW MIRZA APRN ADMIT DATE: 07/09/22/ER Signed Date of Exam:07/09/22 SHOULDER, RIGHT, 3 VIEWS EXAMINATION: Right shoulder radiographs. EXAM DATE: 07/09/2022 3:20 PM COMPARISON: None available. HISTORY: Shoulder pain. TECHNIQUE: 3 views. FINDINGS: There is no acute fracture, dislocation or destructive osseous process. The joint spaces are normal. The soft tissues are normal. IMPRESSION: No acute osseous abnormality. Dictated by: Dictated on workstation # [id number] Dict: 07/09/22 1525 Trans: 07/09/22 1549 [facility] [id number] Interpreted by: BRENNA MANNING DO Electronically signed by: BRENNA MANNING DO 07/09/22 1549 Departure Impression Primary Impression: Shoulder injury Disposition: 01 HOME, SELF-CARE Condition: Stable Departure-Patient Inst. Decision time for Depature: 16:07 Referrals: ELLIOT DOYLE MD (PCP/Family) Primary Care Physician OLENA RAMOS MD Patient Instructions: How to Use a Shoulder Sling, Shoulder Sprain (DC) Add. Discharge Instructions: Wear sling for comfort. You may apply ice to shoulder for 20 minutes at a time several times a day for the next couple days. You may take 800 mg of ibuprofen every 8 hours with food as needed for pain. You may take 1000 mg of Tylenol every 8 hours as needed for pain. Follow-up with orthopedics, call them tomorrow to schedule a follow-up appointment this week. You may also follow-up with your primary care provider if unable to get into orthopedics. Return for severe pain, inability to move shoulder, numbness and tingling in your hands, or any other new, concerning, worsening symptoms. All discharge instructions reviewed with patient and/or family. Voiced understanding. YAW MIRZA APRN Jul 09, 2022 15:06
--- NOTE | 2022-07-09 15:29 | Diagnostic Imaging Report ---
EXAMINATION: Right shoulder radiographs. EXAM DATE: 07/09/2022 3:20 PM COMPARISON: None available. HISTORY: Shoulder pain. TECHNIQUE: 3 views. FINDINGS: There is no acute fracture, dislocation or destructive osseous process. The joint spaces are normal. The soft tissues are normal. IMPRESSION: No acute osseous abnormality. Dictated by: Dictated on workstation # [id number]
[2022-07-09 16:47] VITALS: BP 139/80
== END 2022-07-09 16:47 | disposition home or self-care (01) ==
LOC: EDUNIT# 14:31 → ER 14:34
DX: S49.91XA Unspecified injury of right shoulder and upper arm, initial encounter (principal); F17.210 Nicotine dependence, cigarettes, uncomplicated; W01.0XXA Fall on same level from slipping, tripping and stumbling without subsequent striking against object, initial encounter; Y92.009 Unspecified place in unspecified non-institutional (private) residence as the place of occurrence of the external cause
CPT/HCPCS: 73030

== ENCOUNTER → 2022-07-13 | Outpatient (CLI) | payer MEDICARE | LOC: ORTHO 09:54 | PROVIDERS: ATTEND Orthopaedic Surgery | DX: S46.111A Strain of muscle, fascia and tendon of long head of biceps, right arm, initial encounter (principal); S46.091A Other injury of muscle(s) and tendon(s) of the rotator cuff of right shoulder, initial encounter; I10 Essential (primary) hypertension; E78.2 Mixed hyperlipidemia; E66.9 Obesity, unspecified; Z72.0 Tobacco use; X58.XXXA Exposure to other specified factors, initial encounter | CPT/HCPCS: 99203 ==

== ENCOUNTER → 2022-07-27 | Outpatient (CLI) | payer MEDICARE | LOC: ORTHO 10:15 | PROVIDERS: ATTEND Orthopaedic Surgery | DX: S46.119D Strain of muscle, fascia and tendon of long head of biceps, unspecified arm, subsequent encounter (principal); I10 Essential (primary) hypertension; E78.2 Mixed hyperlipidemia; J43.9 Emphysema, unspecified; E66.9 Obesity, unspecified; X58.XXXD Exposure to other specified factors, subsequent encounter | CPT/HCPCS: 99213 ==

== ENCOUNTER → 2022-09-07 | Outpatient (CLI) | payer MEDICARE | LOC: ORTHO 10:26 | PROVIDERS: ATTEND Orthopaedic Surgery | DX: M67.819 Other specified disorders of synovium and tendon, unspecified shoulder (principal) | CPT/HCPCS: 99213 ==